=== PATIENT | female | born 1955 | race Caucasian/White ===

== ENCOUNTER 2019-08-10 21:28 | Inpatient (IN) | payer OTHER ==
[2019-08-10 21:56] VITALS: BMI 23.9
--- NOTE | 2019-08-10 22:23 | HP ---
CIWA Score Nausea/Vomitin (vomiting x 1) Muscle Tremors: 5 Anxiety: 4-Mod. Anxious/Guarded Agitation: 1-Slight > Activity Paroxysmal Sweats: 2 Orientation: 0-Oriented Tacttile Disturbances: 0-None Auditory Disturbances: 0-None Visual Disturbances: 0-None Headache: 4-Moderately Severe CIWA-Ar Total Score: 18 - Admission Criteria OASAS Guidelines: Admission for Medically Managed Detox: Requires at least one of the followin. CIWA greater than 12 2. Seizures within the past 24 hours 3. Delirium tremens within the past 24 hours 4. Hallucinations within the past 24 hours 5. Acute intervention needed for co occurring medical disorder 6. Acute intervention needed for co occurring psychiatric disorder 7. Severe withdrawal that cannot be handled at a lower level of care (continued vomiting, continued diarrhea, abnormal vital signs) requiring intravenous medication and/or fluids 8. Admitting History and Physical - Smoking History Smoking history: Current every day smoker Have you smoked in the past 12 months: Yes Aproximately how many cigarettes per day: 40 - Alcohol/Substance Use Hx Alcohol Use: Yes Admission ROS [facility] Chief Complaint: Alcohol withdrawal symptoms Allergies/Adverse Reactions: Allergies Allergy/AdvReac Type Severity Reaction Status Date / Time No Known Allergies Allergy Verified 08/10/19 21:46 History of Present Illness: 63 years old female with a long history of alcohol dependence is seeking admission to detox. Patient reports that her last detox was in 2016. She was in a program but relapsed last week. She has medical history of asthma, GERD, left ear hearing loss and psychiatric history of Bipolar, depression and anxiety. She reports longest period of sobriety at 2 years and seven months. Her drug screen result is all negative and her MARTIN is 0.144 Exam Limitations: Intoxication - Ebola screening Have you traveled outside of the country in the last 21 days: No (N) Have you had contact with anyone from an Ebola affected area: No Do you have a fever: No - Review of Systems Constitutional: Night Sweats, Changes in sleep, Weakness EENT: reports: No Symptoms Reported Respiratory: reports: No Symptoms reported Cardiac: reports: No Symptoms Reported GI: reports: Poor Appetite, Poor Fluid Intake, Vomiting, Abdominal cramping : reports: No Symptoms Reported Musculoskeletal: reports: Back Pain, Joint Pain, Muscle Pain Integumentary: reports: Dryness, Flushing Neuro: reports: Headache, Tremors Endocrine: reports: No Symptoms Reported Hematology: reports: No Symptoms Reported Psychiatric: reports: No Sypmtoms Reported, Orientated x3, Anxious, Depressed Other Systems: Reviewed and Negative Patient History - Patient Medical History Hx Anemia: No Hx Asthma: Yes (Albuterol) Hx Chronic Obstructive Pulmonary Disease (COPD): No Hx Cancer: No Hx Cardiac Disorders: No Hx Congestive Heart Failure: No Hx Hypertension: No Hx Hypercholesterolemia: No Hx Pacemaker: No HX Cerebrovascular Accident: No Hx Seizures: No Hx Diabetes: No Hx Gastrointestinal Disorders: No Hx Liver Disease: No Hx Genitourinary Disorders: No Hx Sexually Transmitted Disorders: No Hx Renal Disease (ESRD): No Hx Thyroid Disease: No Hx Human Immunodeficiency Virus (HIV): No (Negative 2019) Hx Hepatitis C: No Hx Depression: Yes Hx Suicide Attempt: No (Denies suicidal ideation at this time) Hx Bipolar Disorder: Yes Hx Schizophrenia: No Other Medical History: Anxiety - Patient Surgical History Past Surgical History: Yes Hx Neurologic Surgery: No Hx Cataract Extraction: No Hx Cardiac Surgery: No Hx Lung Surgery: No Hx Breast Surgery: No Hx Breast Biopsy: No Hx Abdominal Surgery: Yes (Perforated intestine temporary colostomy 40 yrs ago.) Hx Appendectomy: No Hx Cholecystectomy: No Hx Genitourinary Surgery: No Hx Section: Yes (x1) Hx Orthopedic Surgery: No Hx Hysterectomy: No Anesthesia Reaction: No - PPD History Previous Implant?: Yes Documented Results: Negative w/proof Implanted On Prior [facility] Admission?: Yes Date: 05/24/16 PPD to be Administered?: Yes - Reproductive History Patient is a Female of Child Bearing Age (11 -55 yrs old): Yes LMP comment: Menopausal Patient : No - Smoking Cessation Smoking history: Current every day smoker Have you smoked in the past 12 months: Yes Aproximately how many cigarettes per day: 30 Cigars Per Day: 0 Hx Chewing Tobacco Use: No Initiated information on smoking cessation: Yes 'Breaking Loose' booklet given: 08/10/19 - Substance & Tx. History Hx Alcohol Use: Yes Hx Substance Use: No Substance Use Type: Alcohol Hx Substance Use Treatment: Yes ([facility]) - Substances abused Alcohol Substance route: Oral Frequency: Daily Amount used: 6 kvng beers & 1 pint of vodka Age of first use: 22 Date of last use: 08/10/19 Admission Physical Exam [facility] - Vital Signs Vital Signs: Vital Signs - 24 hr 08/10/19 21:46 Temperature 99.2 F Pulse Rate 90 Respiratory 20 Rate Blood Pressure 117/76 - Physical General Appearance: Yes: Within Normal Limits, Intoxicated HEENTM: Yes: Within Normal Limits, Normal Voice, TIFFANY, Tm's normal Respiratory: Yes: Lungs Clear, Normal Breath Sounds, No Respiratory Distress Neck: Yes: Supple Breast: Yes: Breast Exam Deferred Cardiology: Yes: Tachycardia Abdominal: Yes: Within Normal Limits Genitourinary: Yes: Within Normal Limits Back: Yes: Normal Inspection Musculoskeletal: Yes: Within Normal Limits Extremities: Yes: Within Normal Limits, Normal Inspection, Non-Tender Neurological: Yes: Within Normal Limits Integumentary: Yes: Warm Lymphatic: Yes: Within Normal Limits - Diagnostic (1) Alcohol dependence with withdrawal, uncomplicated Current Visit: Yes Status: Chronic (2) Asthma Current Visit: No Status: Chronic Qualifiers: Asthma severity: mild intermittent Asthma complication type: with status asthmaticus Qualified Code(s): J45.22 - Mild intermittent asthma with status asthmaticus (3) GERD (gastroesophageal reflux disease) Current Visit: Yes Status: Chronic Qualifiers: Esophagitis presence: without esophagitis Qualified Code(s): K21.9 - Gastro -esophageal reflux disease without esophagitis (4) Hard of hearing Current Visit: Yes Status: Chronic Qualifiers: Laterality: left Qualified Code(s): H91.92 - Unspecified hearing loss, left ear (5) Nicotine dependence Current Visit: Yes Status: Chronic Qualifiers: Nicotine product type: cigarettes Substance use status: uncomplicated Qualified Code(s): F17.210 - Nicotine dependence, cigarettes, uncomplicated Cleared for Admission [facility] - Detox or Rehab [facility] Level of Care: Medically Managed Detox Regimen/Protocol: Librium Claeared for Rehab Admission: No Inpatient Rehab Admission - Rehab Decision to Admit Inpatient rehab admission?: No
[2019-08-10] MEDS ORDERED: MAGNESIUM HYDROX 2400MG/30ML ORAL SUSPENSION 30 ML CUP PO PRN (22:40)
[2019-08-10] MEDS ORDERED: MENTHOL/PHENOL 1 EACH UD MM PRN (22:40)
[2019-08-10] MEDS ORDERED: chlordiazePOXIDE HCL 25 MG CAPSULE PO PRN (22:40)
[2019-08-10] MEDS ORDERED: BISMUTH SUBSALICYLATE 524 MG/30 ML UD PO PRN (22:40)
[2019-08-10] MEDS ORDERED: MAGNESIUM CITRATE 300 ML BOTTLE PO PRN (22:40)
[2019-08-10] MEDS ORDERED: METHOCARBAMOL 500 MG TABLET PO PRN (22:40)
[2019-08-10] MEDS ORDERED: IBUPROFEN 400 MG TABLET (FP) PO PRN (22:40)
[2019-08-10] MEDS ORDERED: ACETAMINOPHEN 325 MG TABLET (FP) PO PRN ×2 (22:40)
[2019-08-10] MEDS ORDERED: ALBUTEROL SO4 8 GM HFA INHALER IH PRN (22:43)
[2019-08-10] MEDS: chlordiazePOXIDE HCL 25 MG CAPSULE PO SCH (23:38)
[2019-08-10] MEDS: MELATONIN 5 MG TABLETS PO PRN (23:40)
[2019-08-10] MEDS: hydrOXYzine PAMOATE 25 MG CAPSULE (FP) PO PRN (23:41)
[2019-08-10] MEDS: MAG HYDROX/AL HYDROX/SIMETH 30 ML UNIT-DOSE CUP PO PRN (23:56)
[2019-08-11] MEDS: chlordiazePOXIDE HCL 25 MG CAPSULE PO SCH ×4 (06:35→22:10)
--- NOTE | 2019-08-11 09:49 | EKG ---
Test Reason : Blood Pressure : / mmHG Vent. Rate : 082 BPM Atrial Rate : 082 BPM P-R Int : 144 ms QRS Dur : 092 ms QT Int : 402 ms P-R-T Axes : -06 071 070 degrees QTc Int : 469 ms NORMAL SINUS RHYTHM LEFT VENTRICULAR HYPERTROPHY WITH REPOLARIZATION ABNORMALITY ABNORMAL ECG NO PREVIOUS ECGS AVAILABLE Confirmed by MD Dillon, Fabian ([id number]) on 08/11/2019 9:49:02 AM Referred By: Gil Rodriguez Confirmed By:Fabian Carranza MD
[2019-08-11 09:52] LABS: HEMATOCRIT 36.1 % (32.4-45.2); HEMOGLOBIN 12.1 GM/dL (10.7-15.3); MCHC 33.6 g/dl (32.0-36.0); MEAN CELL VOLUME 92.3 fl (80-96); MEAN PLT VOLUME 8.4 fl (7.5-11.1); PLATELET COUNT 297 K/MM3 (134-434); RBC 3.91 M/mm3 (3.60-5.2); RDW 14.2 % (11.6-15.6); WHITE BLOOD COUNT 4.7 K/mm3 (4.0-10.0)
[2019-08-11] MEDS: PRENATAL VITAMINS W/ FOLIC ACID TABLET (FP) PO SCH (10:15)
[2019-08-11] MEDS: NICOTINE 21 MG/24 HOURS TOPICAL PATCH TD SCH (10:16)
--- NOTE | 2019-08-11 10:29 | PN ---
S CIWA - CIWA Score Nausea/Vomitin-Mild Nausea/No Vomiting Muscle Tremors: 3 Anxiety: 3 Agitation: 3 Paroxysmal Sweats: 3 Orientation: 0-Oriented Tacttile Disturbances: 0-None Auditory Disturbances: 0-None Visual Disturbances: 0-None Headache: 1-Very Mild CIWA-Ar Total Score: 14 BHS Progress Note (SOAP) Subjective: headache sweats shakes body aches irritable agitation interrupted sleep Objective: 08/11/19 10:28 Vital Signs Temperature 97.9 F 08/11/19 09:33 Pulse Rate 80 08/11/19 09:33 Respiratory Rate 18 08/11/19 09:33 Blood Pressure 140/87 08/11/19 09:33 O2 Sat by Pulse Oximetry (%) Laboratory Tests 08/11/19 08:00 WBC 4.7 RBC 3.91 Hgb 12.1 Hct 36.1 MCV 92.3 MCH 31.0 MCHC 33.6 RDW 14.2 Plt Count 297 D MPV 8.4 rest of labs pending aaox3 ambulating no acute distress Assessment: 08/11/19 10:28 withdrawals Plan: continue detox increase fluids pending labs
[2019-08-11 10:39] LABS: ALBUMIN 3.3 g/dl (3.4-5.0); BILIRUBIN,TOTAL 0.6 mg/dL (0.2-1); BLOOD UREA NITROGEN 9.9 mg/dL (7-18); CALCIUM 8.9 mg/dL (8.5-10.1); CREATININE 0.7 mg/dL (0.55-1.3); POTASSIUM 3.3 mmol/L (3.5-5.1); TOT PROT 6.4 g/dl (6.4-8.2)
[2019-08-11 11:14] LABS: RPR REACTIVE 1:1 (NONREACTIVE)
[2019-08-11 11:15] LABS: TREPONEMA ANTIBODY PREVIOUSLY REACTIVE (NONREACTIVE)
--- NOTE | 2019-08-11 17:13 | CONSULT ---
[facility] Psychiatric Consult - Data Date of interview: 08/11/19 Admission source: [facility] Identifying data: Readmission to [facility] for this 63 y/o AA female, self- referred for detoxification. KASSANDRA issues : alcohol, nicotine. Patient is single, a mother of three, domiciled, unemployed and supported on SSI benefits. Substance Abuse History: Discussed with the patient. Details in current [facility] report as follows : Smoking history: Current every day smoker. Have you smoked in the past 12 months: Yes. Aproximately how many cigarettes per day: 30. Cigars Per Day: 0. Hx Chewing Tobacco Use: No. Initiated information on smoking cessation: Yes. 'Breaking Loose' booklet given: 08/10/19. - Substance & Tx. History. Hx Alcohol Use: Yes. Hx Substance Use: No. Substance Use Type : Alcohol. Hx Substance Use Treatment: Yes ([facility]). - Substances abused. Alcohol. Substance route: Oral. Frequency: Daily. Amount used: 6 kvng beers & 1 pint of vodka. Age of first use: 22. Date of last use: 08/10/19 Medical History: Medical profile is remarkable for GERD and bronchial asthma. Noted history of abdominal surgery for perforation of intestine 40 years ago ( had a temporary colostomy). Psychiatric History: History of one psychiatric hospitalization ([facility]) in 2016. Retained for two weeks on the psychiatric inpatient service at the time. Patient endorses the diagnosis of MDD. Reportedly prescribed wellbutrin XL 300 mg/day + mirtazapine 30 mg/hs. Non- adherent to medications (self-report). Ms Queen is currently receiving OPD care at [facility] in [facility]. Patient denies history of suicide attempts. Physical/Sexual Abuse/Trauma History: Patient denies. Additional Comment: Toxicology not available for review. Mental Status Exam - Mental Status Exam Alert and Oriented to: Time, Place, Person Cognitive Function: Good Patient Appearance: Well Groomed Mood: Withdrawn, Hopeful Affect: Mood Congruent, Constricted Patient Behavior: Appropriate, Cooperative Speech Pattern: Clear, Appropriate Voice Loudness: Normal Thought Process: Intact, Goal Oriented Thought Disorder: Not Present Hallucinations: Denies Suicidal Ideation: Denies Homicidal Ideation: Denies Insight/Judgement: Poor Sleep: Poorly, Difficulty falling asleep Appetite: Good Gait/Station: Normal Psychiatric Findings - Problem List ([place] 1, 2,3) (1) Alcohol dependence with withdrawal, uncomplicated Current Visit: Yes Status: Acute (2) Nicotine dependence Current Visit: Yes Status: Chronic Qualifiers: Nicotine product type: cigarettes Substance use status: uncomplicated Qualified Code(s): F17.210 - Nicotine dependence, cigarettes, uncomplicated (3) Substance induced mood disorder Current Visit: Yes Status: Chronic (4) Depressive disorder Current Visit: Yes Status: Chronic (5) Insomnia Current Visit: Yes Status: Chronic - Initial Treatment Plan Initial Treatment Plan: Psychoeducation. Sleep hygiene. Detoxification. AA meetings. REsumed at patient's request : wellbutrin XL 150 mg po daily + remeron 15 mg po hs. Side effecst/benefits of both medications are discused with the patient. Ms Queen is in agreement with this plan of care. Observation.
[2019-08-11] MEDS: MIRTAZAPINE 15 MG TABLET (FP) PO SCH (22:10)
[2019-08-11] MEDS: THIAMINE HCL 100 MG TABLET (FP) PO SCH (22:11)
[2019-08-12] MEDS: chlordiazePOXIDE HCL 25 MG CAPSULE PO SCH ×4 (06:37→22:10)
[2019-08-12] MEDS: NICOTINE 21 MG/24 HOURS TOPICAL PATCH TD SCH (10:11)
[2019-08-12] MEDS: PRENATAL VITAMINS W/ FOLIC ACID TABLET (FP) PO SCH (10:12)
--- NOTE | 2019-08-12 10:40 | PN ---
S CIWA - CIWA Score Nausea/Vomitin-No Nausea/No Vomiting Muscle Tremors: 3 Anxiety: 2 Agitation: 3 Paroxysmal Sweats: 3 Orientation: 0-Oriented Tacttile Disturbances: 0-None Auditory Disturbances: 0-None Visual Disturbances: 0-None Headache: 0-None Present CIWA-Ar Total Score: 11 S Progress Note (SOAP) Subjective: sweats tired/weak interrupted sleep agitation body aches Objective: 08/12/19 10:40 Vital Signs Temperature 97.5 F L 08/12/19 05:00 Pulse Rate 73 08/12/19 05:00 Respiratory Rate 18 08/12/19 05:00 Blood Pressure 144/93 08/12/19 05:00 O2 Sat by Pulse Oximetry (%) Laboratory Tests 08/11/19 08/11/19 08/11/19 08:00 08:00 08:00 WBC 4.7 RBC 3.91 Hgb 12.1 Hct 36.1 MCV 92.3 MCH 31.0 MCHC 33.6 RDW 14.2 Plt Count 297 D MPV 8.4 Sodium 144 Potassium 3.3 L Chloride 103 Carbon Dioxide 32 Anion Gap 10 BUN 9.9 Creatinine 0.7 Est GFR (CKD-EPI)AfAm 106.87 Est GFR (CKD-EPI)NonAf 92.21 Random Glucose 100 Calcium 8.9 Total Bilirubin 0.6 AST 71 H ALT 56 Alkaline Phosphatase 90 Total Protein 6.4 Albumin 3.3 L RPR Titer Reactive 1:1 H T.pallidum Ab (MHA) Previously reactive labs noted low potassium 3.3 aaox3 ambulating no acute distress Assessment: 08/12/19 10:42 withdrawals Plan: continue detox kdur [id number] x 2 days ordered increase fluids
[2019-08-12] MEDS: POTASSIUM CHLORIDE TABS 20 MEQ TABLET.ER (FP) PO SCH (11:10)
[2019-08-12] MEDS: MELATONIN 5 MG TABLETS PO PRN (22:10)
[2019-08-12] MEDS: THIAMINE HCL 100 MG TABLET (FP) PO SCH (22:10)
[2019-08-12] MEDS: MIRTAZAPINE 15 MG TABLET (FP) PO SCH (22:10)
[2019-08-13] MEDS ORDERED: chlordiazePOXIDE HCL 10 MG CAPSULE PO PRN
[2019-08-13] MEDS: chlordiazePOXIDE HCL 10 MG CAPSULE PO SCH ×4 (05:55→22:35)
[2019-08-13] MEDS: POTASSIUM CHLORIDE TABS 20 MEQ TABLET.ER (FP) PO SCH (10:01)
[2019-08-13] MEDS: NICOTINE 21 MG/24 HOURS TOPICAL PATCH TD SCH (10:02)
[2019-08-13] MEDS: PRENATAL VITAMINS W/ FOLIC ACID TABLET (FP) PO SCH (10:02)
--- NOTE | 2019-08-13 11:16 | PN ---
[facility] CIWA - CIWA Score Nausea/Vomitin-No Nausea/No Vomiting Muscle Tremors: 2 Anxiety: 1-Mildly Anxious Agitation: 1-Slight > Activity Paroxysmal Sweats: 1-Minimal Palms Moist Orientation: 0-Oriented Tacttile Disturbances: 0-None Auditory Disturbances: 0-None Visual Disturbances: 0-None Headache: 0-None Present CIWA-Ar Total Score: 5 BHS Progress Note (SOAP) Subjective: feeling better little sweats little shakes just tired Objective: 08/13/19 11:16 Vital Signs Temperature 98.6 F 08/13/19 09:52 Pulse Rate 95 H 08/13/19 09:52 Respiratory Rate 18 08/13/19 09:52 Blood Pressure 117/71 08/13/19 09:52 O2 Sat by Pulse Oximetry (%) Laboratory Tests 08/11/19 08/11/19 08/11/19 08:00 08:00 08:00 WBC 4.7 RBC 3.91 Hgb 12.1 Hct 36.1 MCV 92.3 MCH 31.0 MCHC 33.6 RDW 14.2 Plt Count 297 D MPV 8.4 Sodium 144 Potassium 3.3 L Chloride 103 Carbon Dioxide 32 Anion Gap 10 BUN 9.9 Creatinine 0.7 Est GFR (CKD-EPI)AfAm 106.87 Est GFR (CKD-EPI)NonAf 92.21 Random Glucose 100 Calcium 8.9 Total Bilirubin 0.6 AST 71 H ALT 56 Alkaline Phosphatase 90 Total Protein 6.4 Albumin 3.3 L RPR Titer Reactive 1:1 H T.pallidum Ab (MHA) Previously reactive aaox3 ambulating no acute distress repeat on potassium ordered Assessment: 08/13/19 11:17 mild withdrawals Plan: continue detox increase fluids
[2019-08-13] MEDS: NICOTINE POLACRILEX 2 MG GUM BUC PRN (17:32)
[2019-08-13] MEDS: THIAMINE HCL 100 MG TABLET (FP) PO SCH (22:35)
[2019-08-13] MEDS: MIRTAZAPINE 15 MG TABLET (FP) PO SCH (22:35)
[2019-08-14] MEDS: chlordiazePOXIDE HCL 10 MG CAPSULE PO SCH ×2 (06:01→18:46)
[2019-08-14] MEDS: POTASSIUM CHLORIDE TABS 20 MEQ TABLET.ER (FP) PO SCH (10:45)
[2019-08-14] MEDS: PRENATAL VITAMINS W/ FOLIC ACID TABLET (FP) PO SCH (10:46)
[2019-08-14] MEDS: NICOTINE POLACRILEX 2 MG GUM BUC PRN (10:46)
[2019-08-14] MEDS: NICOTINE 21 MG/24 HOURS TOPICAL PATCH TD SCH (10:46)
--- NOTE | 2019-08-14 13:32 | PN ---
[facility] CIWA - CIWA Score Nausea/Vomitin-No Nausea/No Vomiting Muscle Tremors: 1-None Visible, but [place] Anxiety: 0-No Anxiety, at Ease Agitation: 0-Normal Activity Paroxysmal Sweats: No Perspiration Orientation: 0-Oriented Tacttile Disturbances: 0-None Auditory Disturbances: 0-None Visual Disturbances: 0-None Headache: 0-None Present CIWA-Ar Total Score: 1 BHS Progress Note (SOAP) Subjective: tired i need a cane Objective: 08/14/19 13:31 Vital Signs Temperature 98.1 F 08/14/19 09:55 Pulse Rate 83 08/14/19 09:55 Respiratory Rate 18 08/14/19 09:55 Blood Pressure 134/91 08/14/19 09:55 O2 Sat by Pulse Oximetry (%) Laboratory Tests 08/11/19 08/11/19 08/11/19 08:00 08:00 08:00 WBC 4.7 RBC 3.91 Hgb 12.1 Hct 36.1 MCV 92.3 MCH 31.0 MCHC 33.6 RDW 14.2 Plt Count 297 D MPV 8.4 Sodium 144 Potassium 3.3 L Chloride 103 Carbon Dioxide 32 Anion Gap 10 BUN 9.9 Creatinine 0.7 Est GFR (CKD-EPI)AfAm 106.87 Est GFR (CKD-EPI)NonAf 92.21 Random Glucose 100 Calcium 8.9 Total Bilirubin 0.6 AST 71 H ALT 56 Alkaline Phosphatase 90 Total Protein 6.4 Albumin 3.3 L RPR Titer Reactive 1:1 H T.pallidum Ab (MHA) Previously reactive 08/14/19 08:00 WBC RBC Hgb Hct MCV MCH MCHC RDW Plt Count MPV Sodium Potassium 4.7 Chloride Carbon Dioxide Anion Gap BUN Creatinine Est GFR (CKD-EPI)AfAm Est GFR (CKD-EPI)NonAf Random Glucose Calcium Total Bilirubin AST ALT Alkaline Phosphatase Total Protein Albumin RPR Titer T.pallidum Ab (MHA) labs noted aaox3 ambulating no acute distress Assessment: 08/14/19 13:32 mild withdrawals Plan: continue detox cane ordered d/c in am
[2019-08-14] MEDS: MAG HYDROX/AL HYDROX/SIMETH 30 ML UNIT-DOSE CUP PO PRN (15:50)
[2019-08-14] MEDS: THIAMINE HCL 100 MG TABLET (FP) PO SCH (21:54)
[2019-08-14] MEDS: MIRTAZAPINE 15 MG TABLET (FP) PO SCH (21:54)
[2019-08-14] MEDS: MELATONIN 5 MG TABLETS PO PRN (21:55)
[2019-08-15] MEDS: hydrOXYzine PAMOATE 25 MG CAPSULE (FP) PO PRN (01:04)
[2019-08-15] MEDS ORDERED: chlordiazePOXIDE HCL 10 MG CAPSULE PO ONE (05:00)
[2019-08-15] MEDS: MAG HYDROX/AL HYDROX/SIMETH 30 ML UNIT-DOSE CUP PO PRN (06:46)
--- NOTE | 2019-08-15 09:30 | DS ---
[facility] Detox Discharge Summary Admission Date: 08/10/19 Discharge Date: 08/15/19 - History Present History: Alcohol Dependence Pertinent Past History: Pt admitted for alcohol detox- completed detox with mike. Pt states she lives in [place]. Pt states she will f/u with PCP. She does not need the albuterol MDI. No complaints today. Pt will go to see mother in the [place] and then go to [place]. - Physical Exam Results Vital Signs: Vital Signs Temperature 97.3 F L 08/15/19 08:11 Pulse Rate 78 08/15/19 08:11 Respiratory Rate 20 08/15/19 08:11 Blood Pressure 115/79 08/15/19 08:11 O2 Sat by Pulse Oximetry (%) - Treatment Hospital Course: Detox Protocol Followed, Detoxed Safely, Responded well, Discharged Condition Good, Rehab Referral Accepted Patient has Accepted a Rehab Referral to: outpt program and 3/4 house - Medication Discharge Medications: Ambulatory Orders Albuterol Sulfate Inhaler - [Ventolin HFA Inhaler -] 2 puff IH Q4H PRN #1 inhaler 05/28/16 Bupropion HCl [Wellbutrin Xl -] 150 mg PO DAILY #30 tab.sr.24h 05/28/16 Loratadine [Claritin -] 10 mg PO DAILY #30 tablet 05/28/16 Ranitidine [Zantac -] 150 mg PO BID #60 tablet 05/28/16 Mirtazapine [Remeron -] 30 mg PO HS 08/10/19 - AMA Did Patient Leave Against Medical Advice: No
[2019-08-15 10:17] VITALS: BP 102/68; PULSE 94; TEMP 98.4
[2019-08-15] MEDS: PRENATAL VITAMINS W/ FOLIC ACID TABLET (FP) PO SCH (10:44)
[2019-08-15] MEDS: NICOTINE 21 MG/24 HOURS TOPICAL PATCH TD SCH (10:44)
== END 2019-08-15 11:52 | disposition home or self-care (01) | DRG 775 ==
LOC: YASAS 21:28 → Y6N 22:55
PROVIDERS: ADMIT Allergy & Immunology; ATTEND Allergy & Immunology
PROC: HZ2ZZZZ Detoxification Services for Substance Abuse Treatment (ICD-10-PCS; principal; 2019-08-10)
DX: F10.230 Alcohol dependence with withdrawal, uncomplicated (principal); F10.220 Alcohol dependence with intoxication, uncomplicated; F17.210 Nicotine dependence, cigarettes, uncomplicated; F19.24 Other psychoactive substance dependence with psychoactive substance-induced mood disorder; F32.9 Major depressive disorder, single episode, unspecified; G47.00 Insomnia, unspecified; K21.9 Gastro-esophageal reflux disease without esophagitis; J45.909 Unspecified asthma, uncomplicated; H91.92 Unspecified hearing loss, left ear; R00.0 Tachycardia, unspecified
CPT/HCPCS: 36415; 80053; 84132; 85027; 86593; 86780; 93005; 93010

== ENCOUNTER 2022-08-01 10:29 | Inpatient (IN) | payer OTHER ==
[2022-08-01 11:32] VITALS: BMI 24.6
[2022-08-01] MEDS ORDERED: NICOTINE POLACRILEX 4 MG GUM BUC PRN (12:04)
[2022-08-01] MEDS ORDERED: BENZOCAINE/MENTHOL (CHLORASEPTIC ) LOZENGE MM PRN (12:04)
[2022-08-01] MEDS ORDERED: IBUPROFEN 600 MG TABLET (FP) PO PRN (12:04)
[2022-08-01] MEDS ORDERED: POLYETHYLENE GLYCOL (HEALTHYLAX) 3350 17 GM PACKET PO PRN (12:04)
[2022-08-01] MEDS ORDERED: ACETAMINOPHEN 325 MG TABLET (FP) PO PRN ×2 (12:04)
[2022-08-01] MEDS ORDERED: BISMUTH SUBSALICYLATE 262 MG/15 ML BTL PO PRN (12:04)
[2022-08-01] MEDS ORDERED: chlordiazePOXIDE HCL 25 MG CAPSULE PO PRN (12:04)
[2022-08-01] MEDS ORDERED: IBUPROFEN 400 MG TABLET (FP) PO PRN (12:04)
[2022-08-01] MEDS ORDERED: DICYCLOMINE HCL 10 MG CAPSULE PO PRN (12:04)
[2022-08-01] MEDS ORDERED: ONDANSETRON *ODT* 4 MG TABLET SL PRN (12:04)
[2022-08-01] MEDS ORDERED: NICOTINE 21 MG/24 HOURS TOPICAL PATCH TD PRN (12:04)
[2022-08-01] MEDS ORDERED: MAGNESIUM HYDROX 2400MG/30ML ORAL SUSPENSION 30 ML CUP PO PRN (12:04)
[2022-08-01] MEDS ORDERED: MAG HYDROX/AL HYDROX/SIMETH 30 ML UNIT-DOSE CUP PO PRN (12:04)
[2022-08-01] MEDS ORDERED: LOPERAMIDE HCL 2 MG CAPSULE PO PRN (12:04)
[2022-08-01] MEDS ORDERED: ALBUTEROL SO4 HFA INHALER IH PRN (12:09)
[2022-08-01] MEDS ORDERED: TRIMETHOBENZAMIDE HCL 200MG/2ML INJ IM PRN (12:11)
[2022-08-01] MEDS ORDERED: ONDANSETRON *ODT* 4 MG TABLET ONE (12:44)
[2022-08-01] MEDS: LORATADINE 10 MG TABLET PO SCH (14:03)
[2022-08-01] MEDS ORDERED: chlordiazePOXIDE HCL 25 MG CAPSULE PO SCH (17:00)
[2022-08-01] MEDS: chlordiazePOXIDE HCL 25 MG CAPSULE PO SCH ×2 (18:05→22:38)
[2022-08-01] MEDS: METHOCARBAMOL 500 MG TABLET PO PRN (18:09)
[2022-08-01] MEDS: FAMOTIDINE 20 MG TABLET PO SCH (22:38)
[2022-08-01] MEDS: THIAMINE HCL 100 MG TABLET (FP) PO SCH (22:38)
[2022-08-01] MEDS: hydrOXYzine PAMOATE 25 MG CAPSULE (FP) PO PRN (22:38)
[2022-08-01] MEDS: BACITRACIN 0.9 GM PACKET TP SCH (22:38)
[2022-08-01] MEDS: MELATONIN 5 MG TABLETS PO SCH (22:38)
[2022-08-02] MEDS: chlordiazePOXIDE HCL 25 MG CAPSULE PO SCH ×4 (06:10→22:29)
[2022-08-02 10:09] LABS: HEMATOCRIT 38.5 % (32.4-45.2); HEMOGLOBIN 12.7 GM/dL (10.7-15.3); MCH 30.4 pg (25.7-33.7); MEAN CELL VOLUME 92.3 fl (80-96); MEAN PLT VOLUME 8.8 fl (7.5-11.1); PLATELET COUNT 217 10^3/uL (134-434); RBC 4.17 M/mm3 (3.60-5.2); RDW 14.5 % (11.6-15.6); WHITE BLOOD COUNT 4.9 K/mm3 (4.0-10.0)
[2022-08-02] MEDS: BACITRACIN 0.9 GM PACKET TP SCH ×2 (10:12→22:27)
[2022-08-02] MEDS: LORATADINE 10 MG TABLET PO SCH (10:12)
[2022-08-02] MEDS: FAMOTIDINE 20 MG TABLET PO SCH ×2 (10:12→22:29)
[2022-08-02] MEDS: PRENATAL VITAMINS W/ FOLIC ACID TABLET (FP) PO SCH (10:12)
[2022-08-02] MEDS: NICOTINE 10 MG CARTRIDGE (INHALER) IH PRN ×2 (10:15→18:08)
[2022-08-02 10:48] LABS: ALBUMIN 3.3 g/dl (3.4-5.0)
[2022-08-02 10:50] LABS: BLOOD UREA NITROGEN 13.6 mg/dL (7-18)
[2022-08-02 10:52] LABS: CREATININE 0.8 mg/dL (0.55-1.3)
[2022-08-02 10:53] LABS: BILIRUBIN,TOTAL 1.1 mg/dL (0.2-1); TOT PROT 6.8 g/dl (6.4-8.2)
[2022-08-02] MEDS: METHOCARBAMOL 500 MG TABLET PO PRN ×2 (14:25→22:29)
[2022-08-02] MEDS: hydrOXYzine PAMOATE 25 MG CAPSULE (FP) PO PRN (18:06)
[2022-08-02] MEDS: MELATONIN 5 MG TABLETS PO SCH (22:27)
[2022-08-02] MEDS: THIAMINE HCL 100 MG TABLET (FP) PO SCH (22:29)
[2022-08-03] MEDS: chlordiazePOXIDE HCL 25 MG CAPSULE PO SCH ×4 (06:19→22:17)
[2022-08-03] MEDS: METHOCARBAMOL 500 MG TABLET PO PRN ×2 (06:20→12:42)
[2022-08-03] MEDS: LORATADINE 10 MG TABLET PO SCH (10:19)
[2022-08-03] MEDS: FAMOTIDINE 20 MG TABLET PO SCH ×2 (10:19→22:17)
[2022-08-03] MEDS: hydrOXYzine PAMOATE 25 MG CAPSULE (FP) PO PRN (10:19)
[2022-08-03] MEDS: PRENATAL VITAMINS W/ FOLIC ACID TABLET (FP) PO SCH (10:19)
[2022-08-03] MEDS: BACITRACIN 0.9 GM PACKET TP SCH ×2 (10:19→22:16)
[2022-08-03] MEDS: THIAMINE HCL 100 MG TABLET (FP) PO SCH (22:17)
[2022-08-03] MEDS: MELATONIN 5 MG TABLETS PO SCH (22:17)
[2022-08-03] MEDS: NICOTINE 10 MG CARTRIDGE (INHALER) IH PRN (22:47)
[2022-08-04] MEDS ORDERED: chlordiazePOXIDE HCL 10 MG CAPSULE PO PRN
[2022-08-04] MEDS: chlordiazePOXIDE HCL 10 MG CAPSULE PO SCH ×4 (06:09→22:02)
[2022-08-04] MEDS: PRENATAL VITAMINS W/ FOLIC ACID TABLET (FP) PO SCH (10:15)
[2022-08-04] MEDS: BACITRACIN 0.9 GM PACKET TP SCH ×2 (10:15→22:01)
[2022-08-04] MEDS: LORATADINE 10 MG TABLET PO SCH (10:15)
[2022-08-04] MEDS: FAMOTIDINE 20 MG TABLET PO SCH ×2 (10:15→22:01)
[2022-08-04] MEDS: NICOTINE 10 MG CARTRIDGE (INHALER) IH PRN (10:49)
[2022-08-04] MEDS: hydrOXYzine PAMOATE 25 MG CAPSULE (FP) PO PRN (17:28)
[2022-08-04] MEDS: MELATONIN 5 MG TABLETS PO SCH (22:00)
[2022-08-04] MEDS: MIRTAZAPINE 30 MG TABLET PO SCH (22:01)
[2022-08-04] MEDS: THIAMINE HCL 100 MG TABLET (FP) PO SCH (22:01)
[2022-08-05] MEDS: chlordiazePOXIDE HCL 10 MG CAPSULE PO SCH ×2 (06:05→17:35)
[2022-08-05] MEDS: FAMOTIDINE 20 MG TABLET PO SCH ×2 (10:07→22:11)
[2022-08-05] MEDS: LORATADINE 10 MG TABLET PO SCH (10:07)
[2022-08-05] MEDS: PRENATAL VITAMINS W/ FOLIC ACID TABLET (FP) PO SCH (10:07)
[2022-08-05] MEDS: BACITRACIN 0.9 GM PACKET TP SCH ×2 (10:07→22:10)
[2022-08-05] MEDS: METHOCARBAMOL 500 MG TABLET PO PRN ×2 (10:10→22:12)
[2022-08-05] MEDS: hydrOXYzine PAMOATE 25 MG CAPSULE (FP) PO PRN (17:35)
[2022-08-05] MEDS: MELATONIN 5 MG TABLETS PO SCH (22:10)
[2022-08-05] MEDS: THIAMINE HCL 100 MG TABLET (FP) PO SCH (22:10)
[2022-08-05] MEDS: MIRTAZAPINE 30 MG TABLET PO SCH (22:11)
[2022-08-06] MEDS ORDERED: chlordiazePOXIDE HCL 10 MG CAPSULE PO ONE (05:00)
[2022-08-06] MEDS: PRENATAL VITAMINS W/ FOLIC ACID TABLET (FP) PO SCH (09:53)
[2022-08-06] MEDS: BACITRACIN 0.9 GM PACKET TP SCH (09:53)
[2022-08-06] MEDS: FAMOTIDINE 20 MG TABLET PO SCH (09:53)
[2022-08-06 09:57] VITALS: BP 125/65; PULSE 84; RESP 17; TEMP 97.7
== END 2022-08-06 10:47 | disposition home or self-care (01) | DRG 897 ==
LOC: YASAS 10:29 → Y3N 13:11 → Y6N 13:16
PROVIDERS: ADMIT Allergy & Immunology; ATTEND Surgery
PROC: HZ2ZZZZ Detoxification Services for Substance Abuse Treatment (ICD-10-PCS; principal; 2022-08-01)
DX: F10.230 Alcohol dependence with withdrawal, uncomplicated (principal); F17.210 Nicotine dependence, cigarettes, uncomplicated; F31.9 Bipolar disorder, unspecified; G47.00 Insomnia, unspecified; H91.92 Unspecified hearing loss, left ear; J45.20 Mild intermittent asthma, uncomplicated; K21.9 Gastro-esophageal reflux disease without esophagitis; Z86.19 Personal history of other infectious and parasitic diseases
CPT/HCPCS: 36415; 80053; 82962; 85027; 86593; 86780; 87811; 93005; 93010; C9803-CS; Q0162; U0003; U0005